=== PATIENT | female | born 1975 | race Caucasian/White ===

== ENCOUNTER 2018-09-13 14:50 | Emergency (ER) | payer OTHER ==
[~2018-09-13] VITALS: Ht 175.3 cm; Wt 72.6 kg
[~2018-09-13 14:50] MED LIST: BELPTAB PO; HYDACE5325 PO; OMEP20ER PO; OXYACE5T PO; PROM25 PO; PROM50S PR; Percocet 5-3251 EACH PO; RANI150 PO; RXPROM25 PO; Zofran Odt4 MG SL
[2018-09-13 17:20] LABS: Source, Urine Clean Catch
[2018-09-13 17:42] LABS: BASOPHILS ABSOLUTE AUTO 0.04 K/mm3 (0.00-0.23); BASOPHILS PERCENT AUTO 1 % (0-2); EOSINOPHILS ABSOLUTE AUTO 0.07 K/mm3 (0.00-0.68); EOSINOPHILS PERCENT AUTO 1 % (0-6); Hematocrit 45.7 % (33.0-51.0); Hemoglobin 15.4 g/dL (11.5-16.0); IMMATURE GRAN ABSOLUTE AUTO 0.02 K/mm3 (0.00-0.10); IMMATURE GRAN PERCENT AUTO 0 % (0-1); LYMPHOCYTES ABSOLUTE AUTO 2.23 K/mm3 (0.84-5.20); LYMPHOCYTES PERCENT AUTO 27 % (21-46); MONOCYTES ABSOLUTE AUTO 0.79 K/mm3 (0.16-1.47); MONOCYTES PERCENT AUTO 10 % (4-13); Mean Corpuscular HGB 31.2 pg (26.0-34.0); Mean Corpuscular HGB Conc 33.7 g/dL (31.5-36.5); Mean Corpuscular Volume 93 fL (80-100); Mean Platelet Volume 8.9 fL (9.1-12.4); NEUTROPHILS ABSOLUTE AUTO 5.08 K/mm3 (1.96-9.15); NEUTROPHILS PERCENT AUTO 62 % (41-73); Platelet Count 367 K/mm3 (150-400); RDW Coefficient Variation 13.9 % (11.7-14.2); RDW Standard Deviation 47.6 fL (35.1-46.3); Red Blood Cell Count 4.93 M/mm3 (3.80-5.20); White Blood Cell Count 8.23 K/mm3 (4.00-11.30)
[2018-09-13 17:53] LABS: Bilirubin, Urine Neg (Neg); Blood, Urine 1+ (Neg); Glucose Qualitative, Urine Neg (Neg); Ketones, Urine 1+ (Neg); Leukocyte Esterase, Urine Neg (Neg); Nitrite, Urine Neg (Neg); Protein, Urine Neg (Neg); U Amphetamine Screen Not Detected; U Barbituate Screen Not Detected; U Benzodiazapine Screen Not Detected; U Cannabinoids Screen DETECTED; U Cocaine Screen DETECTED; U Methadone Screen Not Detected; U Methamphetamine Screen Not Detected; U Opiates Screen Not Detected; U Phencyclidine Screen Not Detected; Urobilinogen, Urine NORM (Normal)
[2018-09-13 17:54] LABS: Appearance, Urine Clear (Clear); Color, Urine Yellow (P-Yellow); U Buprenorphine Screen Not Detected; U Oxycodone Screen Not Detected; U Propoxyphene Screen Not Detected
[2018-09-13 17:55] LABS: Red Blood Cells, Urine 0-2 /hpf (0-2); Squamous Epithelial Cells Few /hpf (Few)
[2018-09-13 17:56] LABS: Bacteria Mod /hpf; Mucus Light (0-Heavy)
[2018-09-13 18:01] LABS: Ethanol (Alcohol), Blood, Med 10 mg/dL; Salicylate 3.6 mg/dL (2.8-20.0)
[2018-09-13 18:02] LABS: Alanine Aminotransfer (ALT/SGP 15 U/L (12-78); Albumin/Globulin Ratio 1.1 (0.8-1.8); Alk Phos 63 U/L (50-136); Anion Gap 7 mmol/L (6-16); Aspartate Aminotrans (AST/SGOT 10 U/L (12-37); Bilirubin, Total 0.4 mg/dL (0.1-1.0); Blood Urea Nitrogen 8 mg/dL (8-24); Bun/Creatinine Ratio 9.5 (12.0-20.0); CO2, Blood 23 mmol/L (21-32); Calcium, Blood 8.6 mg/dL (8.5-10.1); Chloride, Blood 111 mmol/L (98-108); Creatinine, Blood 0.85 mg/dL (0.40-1.00); Globulin, Blood 3.8 g/dL (2.2-4.0); Glomerular Filtration Rate >60 (60-); Glucose, Blood 81 mg/dL (70-99); Sodium, Blood 141 mmol/L (136-145); Total Protein, Blood 7.8 g/dL (6.4-8.2)
[2018-09-13 18:19] LABS: Acetaminophen, Random <2.0 ug/mL (10.0-30.0)
[2018-09-13 19:29] LABS: Candida species (DNA Probe) Negative (NEGATIVE); G. vaginalis (DNA Probe) Positive (NEGATIVE); T. vaginalis (DNA Probe) Negative (NEGATIVE)
[2018-09-13] MEDS ORDERED: Vibramycin100 MG PO (20:29)
[2018-09-13] MEDS ORDERED: Flagyl500 MG PO (20:29)
[2018-09-14 10:08] LABS: HIV SCREEN 4TH GENERATION WRFX Non Reactive (Non Reactive)
[2018-09-15 03:12] LABS: CHLAMYDIA TRACHOMATIS, NAA Negative (Negative); NEISSERIA GONORRHOEAE, NAA Negative (Negative)
[2018-11-18] MEDS ORDERED: ONDA4ODT MM (16:29)
[2018-11-18] MEDS ORDERED: Percocet 5-3251 EACH PO (16:50)
== END 2018-09-13 18:45 | disposition home or self-care (01) ==
LOC: ER 14:50
PROVIDERS: Emergency Medicine
DX: T74.21XA Adult sexual abuse, confirmed, initial encounter (principal); F17.200 Nicotine dependence, unspecified, uncomplicated; R11.0 Nausea
CPT/HCPCS: 36415; 80053; 81001; 81025; 85025; 87086; 87389; 87480; 87491; 87510; 87591; 87660; 96372; 99285; G0480; J0696

== ENCOUNTER 2021-12-28 11:51 | Emergency (ER) | payer OTHER ==
[~2021-12-28] VITALS: Ht 175.3 cm; Wt 83.9 kg
[~2021-12-28 11:51] MED LIST changes: +AMOCLA875 PO; +Flagyl500 MG PO; +HYDR1TAB94 PO; +METO10 PO; +ONDA4 PO; +ONDA4ODT MM; +PROM12.5S PR; +Vibramycin100 MG PO
[2021-12-28 12:56] LABS: BASOPHILS ABSOLUTE AUTO 0.07 K/mm3 (0.00-0.23); BASOPHILS PERCENT AUTO 1 % (0-2); EOSINOPHILS ABSOLUTE AUTO 0.01 K/mm3 (0.00-0.68); EOSINOPHILS PERCENT AUTO 0 % (0-6); Hematocrit 43.8 % (33.0-51.0); Hemoglobin 14.8 g/dL (11.5-16.0); IMMATURE GRAN ABSOLUTE AUTO 0.05 K/mm3 (0.00-0.10); IMMATURE GRAN PERCENT AUTO 0 % (0-1); LYMPHOCYTES ABSOLUTE AUTO 1.32 K/mm3 (0.84-5.20); LYMPHOCYTES PERCENT AUTO 10 % (21-46); MONOCYTES ABSOLUTE AUTO 0.69 K/mm3 (0.16-1.47); MONOCYTES PERCENT AUTO 5 % (4-13); Mean Corpuscular HGB 30.1 pg (26.0-34.0); Mean Corpuscular HGB Conc 33.8 g/dL (31.5-36.5); Mean Corpuscular Volume 89 fL (80-100); Mean Platelet Volume 9.3 fL (9.1-12.4); NEUTROPHILS ABSOLUTE AUTO 11.74 K/mm3 (1.96-9.15); NEUTROPHILS PERCENT AUTO 85 % (41-73); Platelet Count 408 K/mm3 (150-400); RDW Coefficient Variation 13.7 % (11.7-14.2); RDW Standard Deviation 45.1 fL (35.1-46.3); Red Blood Cell Count 4.92 M/mm3 (3.80-5.20); White Blood Cell Count 13.88 K/mm3 (4.00-11.30)
[2021-12-28 13:18] LABS: Alanine Aminotransfer (ALT/SGP 19 U/L (12-78); Albumin, Blood 4.1 g/dL (3.4-5.0); Alk Phos 62 U/L (50-136); Anion Gap 8 mmol/L (6-16); Aspartate Aminotrans (AST/SGOT 15 U/L (12-37); Bilirubin, Total 0.6 mg/dL (0.1-1.0); Blood Urea Nitrogen 12 mg/dL (8-24); Bun/Creatinine Ratio 17.5 (12.0-20.0); CO2, Blood 25 mmol/L (21-32); Calcium, Blood 9.3 mg/dL (8.5-10.1); Chloride, Blood 107 mmol/L (98-108); Creatinine, Blood 0.68 mg/dL (0.40-1.00); Glomerular Filtration Rate >60 (60-); Glucose, Blood 124 mg/dL (70-99); Potassium, Blood 3.8 mmol/L (3.5-5.5); Sodium, Blood 140 mmol/L (136-145); Total Protein, Blood 8.1 g/dL (6.4-8.2)
[2021-12-28] MEDS ORDERED: PROM25 PO (14:56)
[2021-12-28] MEDS ORDERED: ONDA4ODT MM (14:56)
[2021-12-28] MEDS ORDERED: Pepcid40 MG PO (14:56)
== END 2021-12-28 15:05 | disposition home or self-care (01) ==
LOC: ER 11:51
PROVIDERS: Physician Assistant
DX: R10.13 Epigastric pain (principal); R11.2 Nausea with vomiting, unspecified; F17.210 Nicotine dependence, cigarettes, uncomplicated
CPT/HCPCS: 36415; 71045; 80053; 83690; 84484; 85025; 93005; 93010; J1790; J2405

== ENCOUNTER 2022-08-04 09:47 | Day surgery (SDC) | payer OTHER ==
[~2022-08-04] VITALS: Ht 175.3 cm; Wt 84.0 kg
[~2022-08-04 09:47] MED LIST changes: +Pepcid40 MG PO
== END 2022-08-04 12:17 | disposition home or self-care (01) ==
LOC: ORSCSDS 09:47
PROVIDERS: Student in an Organized Health Care Education/Training Program
PROC: 0DB68ZX Excision of Stomach, Via Natural or Artificial Opening Endoscopic, Diagnostic (ICD-10-PCS; principal; 2022-08-04 12:00)
PROC: 0DB98ZX Excision of Duodenum, Via Natural or Artificial Opening Endoscopic, Diagnostic (ICD-10-PCS; principal; 2022-08-04 12:00)
DX: R11.2 Nausea with vomiting, unspecified (principal); K44.9 Diaphragmatic hernia without obstruction or gangrene; K29.70 Gastritis, unspecified, without bleeding; F41.9 Anxiety disorder, unspecified
CPT/HCPCS: 88305; 88341; 88342; J2250; J2704; J7120

== ENCOUNTER 2023-03-26 07:07 | Day surgery (SDC) | payer OTHER ==
[~2023-03-26] VITALS: Ht 175.3 cm; Wt 84.6 kg
[2023-03-26] VITALS (12 sets, daily range): BP systolic 112–153; BP diastolic 74–93
--- NOTE | 2023-03-26 08:39 | NUR ---
Ambulatory in Day Surgery. History, Chart, Medications and Allergies reviewed before start of procedure. Lungs clear T/O to Auscultation. Patient confirms NPO status and agrees with scheduled surgery. Pre-Op teaching done. Pt verbalizes understanding. Patient States Post-Procedure ride home has been arranged. PT BELONGINGS PLACED UNDERNEATH GURNEY FOR SAFEKEEPING. PT CONTACTS IN PURSE GIVEN TO PARTNER. PT JEWELRY ON L EAR TAPED.
--- NOTE | 2023-03-26 10:26 | NUR ---
REPORT RECIEVED. PT SITTING UP IN BED TOLERATING PO FLUIDS AND CRACKERS. C/O PAIN 03/06. ORDERS FOR PAIN MEDICATION REVIEWED. AT BEDSIDE. ON ROOM AIR. VSS
--- NOTE | 2023-03-26 10:41 | NUR ---
PT RESTING. DRESSING C/D/I. PARTNER AT BEDSIDE. PT REPORTS DISCOMFORT AT INCISION. DRINKING WATER AND EATING CRACKERS. VSS
--- NOTE | 2023-03-26 10:53 | NUR ---
Patient up to Ambulate independently. Gait steady. Discharge instructions reviewed with patient and partner . Patient verbalizes understanding. Copy given to patient to take home. Dressing to procedure site clean, dry, intact with no visible drainage, swelling, erythema or bruising noted. Discharged via wheelchair to private car for ride home.
== END 2023-03-26 10:56 | disposition home or self-care (01) ==
LOC: ORSCMMR 07:07 → ORD 08:30 → ORSCMMR 10:56
PROVIDERS: Surgery
PROC: 0JB70ZX Excision of Back Subcutaneous Tissue and Fascia, Open Approach, Diagnostic (ICD-10-PCS; principal; 2023-03-26 08:30)
DX: D17.1 Benign lipomatous neoplasm of skin and subcutaneous tissue of trunk (principal); F17.210 Nicotine dependence, cigarettes, uncomplicated; F41.9 Anxiety disorder, unspecified
CPT/HCPCS: 88304; A9270; J0690; J1100; J1170; J2405; J2704; J2795; J3010; J7120

== ENCOUNTER 2024-06-20 06:52 | Emergency (ER) | payer SELFPAY ==
[~2024-06-20] VITALS: Ht 175.3 cm; Wt 86.2 kg
[2024-06-20] MEDS ORDERED: Droperidol 5 mg/2 ml Vial IV ONE (07:20)
[2024-06-20] MEDS ORDERED: NS 1,000 ML IV SCH (07:20)
[2024-06-20] MEDS ORDERED: Famotidine 10 MG/ML 2ML Vial IV ONE (07:20)
[2024-06-20 07:28] LABS: BASOPHILS ABSOLUTE AUTO 0.02 K/mm3 (0.00-0.23); BASOPHILS PERCENT AUTO 0 % (0-2); EOSINOPHILS PERCENT AUTO 0 % (0-6); Hematocrit 42.1 % (33.0-51.0); Hemoglobin 14.5 g/dL (11.5-16.0); IMMATURE GRAN ABSOLUTE AUTO 0.02 K/mm3 (0.00-0.10); IMMATURE GRAN PERCENT AUTO 0 % (0-1); LYMPHOCYTES ABSOLUTE AUTO 1.35 K/mm3 (0.84-5.20); LYMPHOCYTES PERCENT AUTO 13 % (21-46); MONOCYTES ABSOLUTE AUTO 0.43 K/mm3 (0.16-1.47); MONOCYTES PERCENT AUTO 4 % (4-13); Mean Corpuscular HGB Conc 34.4 g/dL (31.5-36.5); Mean Corpuscular Volume 87 fL (80-100); Mean Platelet Volume 8.7 fL (9.1-12.4); NEUTROPHILS ABSOLUTE AUTO 8.47 K/mm3 (1.96-9.15); NEUTROPHILS PERCENT AUTO 82 % (41-73); Platelet Count 409 K/mm3 (150-400); RDW Coefficient Variation 13.5 % (11.7-14.2); RDW Standard Deviation 43.2 fL (35.1-46.3); Red Blood Cell Count 4.83 M/mm3 (3.80-5.20); White Blood Cell Count 10.29 K/mm3 (4.00-11.30)
[2024-06-20 07:49] LABS: Albumin, Blood 4.3 g/dL (3.4-5.0); Albumin/Globulin Ratio 1.1 (0.8-1.8); Bilirubin, Direct 0.2 mg/dL (0.0-0.3); Bilirubin, Indirect 0.6 mg/dL (0.1-0.7); Bilirubin, Total 0.8 mg/dL (0.1-1.0); Bun/Creatinine Ratio 17.9 (12.0-20.0); Calcium, Blood 9.3 mg/dL (8.5-10.1); Creatinine, Blood 0.62 mg/dL (0.40-1.00); Globulin, Blood 3.9 g/dL (2.2-4.0); Potassium, Blood 3.2 mmol/L (3.5-5.5); Total Protein, Blood 8.2 g/dL (6.4-8.2)
[2024-06-20 07:58] LABS: Source, Urine Clean Catch
[2024-06-20 08:09] LABS: Appearance, Urine Clear (Clear); Bilirubin, Urine Neg (Neg); Blood, Urine 4+ (Neg); Color, Urine Yellow (P-Yellow); Glucose Qualitative, Urine Neg (Neg); Ketones, Urine 2+ (Neg); Leukocyte Esterase, Urine Neg (Neg); Nitrite, Urine Neg (Neg); Protein, Urine 2+ (Neg); Specific Gravity, Urine 1.015 (1.003-1.022); Urobilinogen, Urine NORM (Normal)
[2024-06-20 08:22] LABS: Influenza A, PCR NEGATIVE (NEGATIVE); Influenza B, PCR NEGATIVE (NEGATIVE); Resp Syncytial Virus, PCR NEGATIVE (NEGATIVE); SARS-Cov-2 (COVID-19) PCR, MMC NEGATIVE (NEGATIVE)
[2024-06-20 08:23] LABS: Bacteria Rare /hpf; Red Blood Cells, Urine 0-2 /hpf (0-2); Squamous Epithelial Cells Few /hpf (Few); White Blood Cells, Urine 0-2 /hpf (0-5)
[2024-06-20] MEDS ORDERED: Potassium Chloride 20 MEQ TabCR PO ONE (08:30)
[2024-06-20] MEDS ORDERED: FAMO20 PO (08:36)
[2024-06-20] MEDS ORDERED: ONDA4ODT MM (08:36)
[2024-06-20] MEDS ORDERED: PROM12.5S PR (08:36)
[2024-06-20] MEDS ORDERED: METO10 PO (08:36)
[2024-06-20 09:10] VITALS: BP 131/79
== END 2024-06-20 09:20 | disposition home or self-care (01) ==
LOC: ER 06:52
PROVIDERS: Student in an Organized Health Care Education/Training Program
DX: K29.70 Gastritis, unspecified, without bleeding (principal); E86.0 Dehydration; E87.6 Hypokalemia; F17.200 Nicotine dependence, unspecified, uncomplicated; F12.21 Cannabis dependence, in remission
CPT/HCPCS: 0241U; 80048; 80076; 81001; 83690; 84703; 85025; 93005; 93010; 96361; 96374; 96375; 99284-25; A9270; J1790; J7030

== ENCOUNTER 2024-07-11 14:51 | Emergency (ER) | payer SELFPAY ==
[~2024-07-11] VITALS: Ht 175.3 cm; Wt 77.1 kg
[~2024-07-11 14:51] MED LIST changes: +FAMO20 PO
[2024-07-11 15:12] VITALS: BP 147/99
[2024-07-11] MEDS ORDERED: Ketorolac Tromethamine 15mg Vial IV ONE (15:15)
[2024-07-11] MEDS ORDERED: Ondansetron HCl 2 MG / ML 2ML Vial IV ONE (15:15)
[2024-07-11 15:32] LABS: BASOPHILS ABSOLUTE AUTO 0.03 K/mm3 (0.00-0.23); BASOPHILS PERCENT AUTO 0 % (0-2); EOSINOPHILS PERCENT AUTO 0 % (0-6); Hemoglobin 14.2 g/dL (11.5-16.0); IMMATURE GRAN ABSOLUTE AUTO 0.02 K/mm3 (0.00-0.10); IMMATURE GRAN PERCENT AUTO 0 % (0-1); LYMPHOCYTES ABSOLUTE AUTO 1.08 K/mm3 (0.84-5.20); LYMPHOCYTES PERCENT AUTO 10 % (21-46); MONOCYTES ABSOLUTE AUTO 0.34 K/mm3 (0.16-1.47); MONOCYTES PERCENT AUTO 3 % (4-13); Mean Corpuscular HGB 30.8 pg (26.0-34.0); Mean Corpuscular HGB Conc 34.6 g/dL (31.5-36.5); Mean Corpuscular Volume 89 fL (80-100); Mean Platelet Volume 9.1 fL (9.1-12.4); NEUTROPHILS ABSOLUTE AUTO 9.07 K/mm3 (1.96-9.15); NEUTROPHILS PERCENT AUTO 86 % (41-73); Platelet Count 372 K/mm3 (150-400); RDW Coefficient Variation 13.3 % (11.7-14.2); RDW Standard Deviation 43.4 fL (35.1-46.3); Red Blood Cell Count 4.61 M/mm3 (3.80-5.20); White Blood Cell Count 10.54 K/mm3 (4.00-11.30)
[2024-07-11 16:06] LABS: Albumin, Blood 3.9 g/dL (3.4-5.0); Albumin/Globulin Ratio 1.1 (0.8-1.8); Bilirubin, Total 0.4 mg/dL (0.1-1.0); Bun/Creatinine Ratio 10.8 (12.0-20.0); Creatinine, Blood 0.74 mg/dL (0.40-1.00); Globulin, Blood 3.5 g/dL (2.2-4.0); Magnesium, Blood 1.9 mg/dL (1.6-2.4); Potassium, Blood 3.5 mmol/L (3.5-5.5); Total Protein, Blood 7.4 g/dL (6.4-8.2)
[2024-07-11] MEDS ORDERED: Droperidol 5 mg/2 ml Vial IV ONE (18:00)
[2024-07-11] MEDS ORDERED: NS 1,000 ML IV SCH (18:00)
[2024-07-11] MEDS ORDERED: Famotidine 10 MG/ML 2ML Vial IV ONE (18:20)
[2024-07-11] MEDS ORDERED: OMEP20ER PO (18:41)
== END 2024-07-11 18:50 | disposition home or self-care (01) ==
LOC: ER 14:51
PROVIDERS: Physician Assistant
DX: R10.13 Epigastric pain (principal); R11.2 Nausea with vomiting, unspecified; Z79.899 Other long term (current) drug therapy; F17.200 Nicotine dependence, unspecified, uncomplicated
CPT/HCPCS: 80053; 83690; 83735; 85025; 96361; 96374; 96375; 99284-25; J1790; J1885; J2405; J7030

== ENCOUNTER → 2024-08-21 | Outpatient (CLI) | payer SELFPAY ==
[2024-08-21 12:29] LABS: BASOPHILS ABSOLUTE AUTO 0.03 K/mm3 (0.00-0.23); BASOPHILS PERCENT AUTO 0 % (0-2); EOSINOPHILS PERCENT AUTO 0 % (0-6); Hematocrit 44.3 % (33.0-51.0); Hemoglobin 15.5 g/dL (11.5-16.0); IMMATURE GRAN ABSOLUTE AUTO 0.03 K/mm3 (0.00-0.10); IMMATURE GRAN PERCENT AUTO 0 % (0-1); LYMPHOCYTES PERCENT AUTO 14 % (21-46); MONOCYTES ABSOLUTE AUTO 0.84 K/mm3 (0.16-1.47); MONOCYTES PERCENT AUTO 8 % (4-13); Mean Corpuscular HGB 30.3 pg (26.0-34.0); Mean Corpuscular Volume 87 fL (80-100); NEUTROPHILS ABSOLUTE AUTO 8.53 K/mm3 (1.96-9.15); NEUTROPHILS PERCENT AUTO 78 % (41-73); Platelet Count 443 K/mm3 (150-400); RDW Coefficient Variation 13.2 % (11.7-14.2); RDW Standard Deviation 41.4 fL (35.1-46.3); Red Blood Cell Count 5.12 M/mm3 (3.80-5.20); White Blood Cell Count 10.93 K/mm3 (4.00-11.30)
[2024-08-21 12:44] LABS: Albumin, Blood 4.6 g/dL (3.4-5.0); Albumin/Globulin Ratio 1.1 (0.8-1.8); Bilirubin, Total 0.9 mg/dL (0.1-1.0); Bun/Creatinine Ratio 9.4 (12.0-20.0); Calcium, Blood 11.1 mg/dL (8.5-10.1); Creatinine, Blood 0.96 mg/dL (0.40-1.00); Globulin, Blood 4.3 g/dL (2.2-4.0); Potassium, Blood 3.2 mmol/L (3.5-5.5); Total Protein, Blood 8.9 g/dL (6.4-8.2)
== END | disposition home or self-care (01) ==
LOC: LAB SHORT 12:25 → LAB 12:25
PROVIDERS: Physician Assistant
DX: R10.9 Unspecified abdominal pain (principal)
CPT/HCPCS: 80053; 83690; 85025

== ENCOUNTER 2024-10-19 08:58 | Day surgery (SDC) | payer OTHER ==
[~2024-10-19] VITALS: Ht 175.3 cm; Wt 80.4 kg
[~2024-10-19 08:58] MED LIST changes: +Lactated Ringer's 1,000 ML IV ONE; +propofoL 50 ML IV ONE
[2024-10-19] MEDS ORDERED: Midazolam HCL 1 MG/ML 5MLVIAL ONE (09:15)
[2024-10-19] MEDS ORDERED: Lactated Ringer's 1,000 ML IV ONE (09:25)
[2024-10-19] MEDS ORDERED: Glycopyrrolate 0.2 MG/ML 1MLVIAL ONE (10:01)
[2024-10-19] MEDS ORDERED: propofoL 50 ML IV ONE (10:27)
[2024-10-19 11:47] VITALS: BP 112/71
== END 2024-10-19 11:20 | disposition home or self-care (01) ==
LOC: ORSCSDS 08:58
DX: R10.13 Epigastric pain (principal); R11.2 Nausea with vomiting, unspecified; D12.3 Benign neoplasm of transverse colon; R10.31 Right lower quadrant pain; K59.00 Constipation, unspecified; K64.4 Residual hemorrhoidal skin tags; F41.9 Anxiety disorder, unspecified; F17.210 Nicotine dependence, cigarettes, uncomplicated
CPT/HCPCS: 88305; 88342; J2250; J2704; J7120